=== PATIENT | male | born 1985 | race Caucasian/White ===

== ENCOUNTER 2022-11-23 13:38 | Outpatient (REF) | payer SELFPAY | END 2022-11-23 13:39 | disposition home or self-care (01) | LOC: LBN 13:38 | PROVIDERS: Visit Provider Physician Assistant Medical | DX: J02.9 Acute pharyngitis, unspecified (principal) | CPT/HCPCS: 87081 ==

== ENCOUNTER 2023-09-12 20:47 | Observation (INO) | payer OTHER, SELFPAY ==
[2023-09-12 20:53] VITALS: BP 118/72; PULSE 96; RESP 16; TEMP 37.5; O2SAT 96
[2023-09-12 22:06] LABS: Bilirubin Negative (Negative); Blood Negative (Negative); Clarity Clear (Clear); Glucose Negative (Negative); Ketones Negative (Negative); Leukocyte Esterase Negative (Negative); Nitrite Negative (Negative)
[2023-09-12 22:15] LABS: Bacteria Negative HPF (Negative); C & S Indicated? No; Crystals Negative HPF (Negative); Epithelial Cells Few HPF (Negative); Mucus Heavy (Negative); RBC 0-2 HPF (0-2)
--- NOTE | 2023-09-12 22:15 | DI.CT_ITS ---
Exam(s) CT ABDOMEN PELVIS W EXAM: CT ABDOMEN PELVIS W CLINICAL HISTORY: Recent Dx of Diverticulitis, Fever, increased pain. TECHNIQUE: Imaging Protocol: Axial computed tomography images with coronal and sagittal reformatted images were created and reviewed CONTRAST MATERIAL: Intravenous: Omnipaque 350 Contrast volume:100 ml Oral: / no COMPARISON: CT ABD PELVIS WITH CONTRAST from 09/15/2015 FINDINGS: ABDOMEN and PELVIS: Lung Bases: Normal where visualized. Liver: Normal density. No measurable mass. Gallbladder and biliary tract: No radiodense calculus or dilation. Pancreas: Normal density. No abnormal calcifications or inflammatory process. No evidence of mass. Spleen: Normal. Kidneys: Normal size, contour and axis. No radiodense stones. No obstructive uropathy. No suspicious masses seen. Adrenal glands: No masses seen. Vasculature: Abdominal aorta non-dilated. Soft tissues: Fatty containing right inguinal hernia. Metallic foreign body anterior right inguinal region. Bladder: Nearly empty. Not well evaluated. Bowel: Mild sigmoid and descending colon diverticulosis. There is wall thickening of the sigmoid a l ow in the pelvis with surrounding inflammation. Minimal amount of fluid but no discrete abscess. Ad jacent loops of small bowel also appear thick walled and mildly dilated. No findings to suggest obst ruction. Appendix normal. Bones: Unremarkable for age. Reproductive organs: Within normal limits. Lymph nodes: Enteric lymph nodes mildly enlarged, likely reactive. IMPRESSION:: Inflammation centered around the sigmoid colon which could indicate diverticulitis vers us colitis. Adjacent loops of small bowel appear effected by the inflammation. No evidence of perfo ration or abscess. RADIATION DOSE DELIVERED: Total DLP DATA REPOSITORY: All CT scans at this facility are submitted to the National Radiology Data Registry (NRDR) Dose Index Registry (DIR) with the [employer] (A[employer]). RADIATION OPTIMIZATION: All CT scans at this facility use at least one of these dose optimization te chniques: automated exposure control; mA and/or kV adjustment per patient size (includes targeted exa ms where dose is matched to clinical indication); or iterative reconstruction.
--- NOTE | 2023-09-12 22:20 | ED.GENADUL_ITS ---
Discharge Plan Disposition Patient Disposition: Admit to [facility] Condition: Stable Discharge Details Clinical Impression: Diverticulitis Primary Care Provider: [facility] ED Provider: Rossy Guallpa Home Meds and New Rx's Prescriptions: No Action acetaminophen [Tylenol Extra Strength] 500 MG tablet 500 mg PO TID omeprazole magnesium [Prilosec OTC] 20 MG tablet,delayed release (DR/EC) 1 tab PO DAILY amoxicillin-pot clavulanate 1 TAB tablet 1 ea PO BID Qty: 14 0RF Medical Decision Making 37-year-old male with history of diverticulitis presents to the ER with chief complaint of worsening abdominal pain. Intermittent fevers and dysuria. He was seen yesterday at the [facility] in [place] was diagnosed with diverticulitis. He was given amoxicillin 3 times daily which he is taken approximately 5 doses of. He has taken Tylenol for pain. Last dose was 7:40 PM prior to arrival. He denies any nausea vomiting diarrhea he does endorse constipation no bowel movement today. He does note small amount of lower abdominal bloating. He reports mucus in his stool he denies any known blood in his stool no vomiting. I did discuss work-up options including pain management and control versus repeat CT to rule out perforation or obstruction at this time patient would like to go ahead and have additional work-up done. CT ordered CBC CMP lactate. Urinalysis shows no evidence of UTI 1.0 urobilinogen 30 protein no leukocytes no nitrites. Liter of LR ordered and 0.5 mg of hydromorphone. 2359: Spoke with Dr. Beth regarding patient case and details. He is unable to view the CT images at this time. I did relay the results with him. He agrees to accept patient for admission after further discussion with patient patient is willing to be admitted for overnight observation due to worsening pain and continued fever and recurrent diverticulitis, and IV antibiotics Dr. Beth recommends Zosyn and he will reevaluate in the a.m. Zosyn 3.375 g IV piggyback ordered. We will place ED admission orders. Medical Records Medical records reviewed: Yes I reviewed the patient's medical records. Imaging Data Radiologic Study: Imaging: CT Scan Radiologist's impression: FINDINGS: Lungs: The lungs are otherwise normal. Pleural spaces: There is no evidence of pneumothorax. There are no pleural effusions present. Heart: The cardiac structures are normal. Liver: There are no focal liver lesions present. There is no evidence of intrahepatic or extrahepatic biliary ductal dilation. Gallbladder and bile ducts: The gallbladder is normal. There is no cholelitiasis, wall thickening or pericholecystic fluid to suggest cholecystitis. Pancreas: The pancreas is normal. Spleen: The spleen is slightly enlarged but otherwise normal. normal. Adrenal glands: The adrenal glands are normal without evidence of mass or enlargement. Kidneys and ureters: The kidneys are normal no evidence of nephrolithiasis or hydronephrosis. The ureters are normal caliber and follow a normal caliber and course. Stomach and bowel: Mild diverticulosis is present in the sigmoid and descending colon. There are diffuse fluid filled loops of small bowel and colon with scattered air fluid levels. The bowel loops are mildly distended. There is mild associated bowel wall thickening. No evidence of obstruction. Findings most consistent with diffuse enterocolitis. There is a segment of wall thickening at the junction of the sigmoid and descending colon, with associated inflammatory changes within the mesentery, consistent in appearance with acute diverticulitis. There is small phlegmon within the lower pelvis best it seen on image 75 series 4 no definitive well developed abscess identified. As an underlying colonic malignancy cannot be entirely excluded, a follow-up examination after a course of treatment is recommended if clinically warranted. There are fluid-filled loops of small bowel with air-fluid levels. No significant bowel wall thickening or inflammatory changes. No evidence of obstruction. Consider early enteritis. Appendix: A normal appendix is identified. There is no evidence of distention or periappen diceal inflammation to suggest appendicitis. Intraperitoneal space: No free air. No significant fluid collection. Vasculature: The aorta is unremarkable without evidence of significant atherosclerosis or aneurysmal disease. The peripheral arterial vascular system visualized is unremarkable. The portal venous system visualized is unremarkable. The peripheral venous vascular system visualized is unremarkable. Lymph nodes: There are enlarged nonspecific lymph nodes in the mesenteric fat. This nonspecific mesenteric adenitis can be secondary to a variety of bacterial, viral, or other inflammatory processes. Urinary bladder: Unremarkable as visualized. Reproductive: The prostate gland demonstrates calcification and mild to moderate nonspecific enlargement. The seminal vesicles are normal. Bones/joints: The skeletal structures and soft tissues show no evidence of fracture or other acute processes. Soft tissues: There is a nonobstructing right inguinal hernia containing fat and possibly a small amount of mesentery. The soft tissues of the extrathoracic region are unremarkable. Metallic foreign body present the anterior right inguinal region. IMPRESSION: 1. There are diffuse fluid filled loops of small bowel and colon with scattered air fluid levels. The bowel loops are mildly distended. There is mild associated bowel wall thickening. No evidence of obstruction. Findings most consistent with diffuse enterocolitis. . 2. There is a segment of wall thickening at the junction of the sigmoid and descending colon, with associated inflammatory changes within the mesentery, consistent in appearance with acute diverticulitis. There is small phlegmon within the lower pelvis best it seen on image 75 series 4 no definitive well developed abscess identified. As an underlying colonic malignancy cannot be entirely excluded, a follow-up examination after a course of treatment is recommended if clinically warranted. Critical 3. There are fluid-filled loops of small bowel with air-fluid levels. No significant bowel wall thickening or inflammatory changes. No evidence of obstruction. Consider early enteritis. 4. There are enlarged nonspecific lymph nodes in the mesenteric fat. This nonspecific mesenteric adenitis can be secondary to a variety of bacterial, viral, or other inflammatory processes. Thank you for allowing us to participate in the care of your patient. Dictated and Authenticated by: Neymar Pineda MD Lab Data Lab results reviewed: Yes I reviewed the patient's lab results. Labs: Laboratory Tests Range/Units 09/12/23 09/12/23 22:03 22:30 WBC (4.4-10.8) 10^3/uL 11.91 H RBC (4.36-5.78) 10^6/uL 4.88 Hgb (13.5-17.5) g/dL 13.3 L Hct (40.0-50.0) % 39.3 L MCV (80-95) fL 81 MCH (27.0-33.0) pg 27.3 MCHC (32.0-36.0) % 33.8 RDW (11.8-14.1) % 11.9 Plt Count (130-400) 10^3/uL 215 MPV (8.0-11.0) fL 10.6 Immature Gran % 0.4 Neutrophils % 76.6 Lymphocytes % 14.0 Monocytes % 8.0 Eosinophils % 0.5 Basophils % 0.5 Nucleated RBC % (0.0-0.3) % 0.0 Absolute Neutrophils (1.2-6.7) 10^3/uL 9.12 H Absolute Lymphocytes (1.2-3.4) 10^3/uL 1.67 Absolute Monocytes (0.1-0.8) 10^3/uL 0.95 H Absolute Eosinophils (0.0-0.7) 10^3/uL 0.06 Absolute Basophils (0.0-0.2) 10^3/uL 0.06 VBG Lactate (0.6-1.4) mmol/L 0.7 Sodium (136-145) mmol/L 137 Potassium (3.5-5.1) mmol/L 3.6 Chloride (98-107) mmol/L 102 Carbon Dioxide (21.0-32.0) mmol/L 28.8 Anion Gap (3-11) mmol/L 6.2 BUN (7-18) mg/dL 16 Creatinine (0.70-1.30) mg/dL 1.1 Est GFR (CKD-EPI 2020) (mL/min/1.73m2) 88.12 Glucose (74-106) mg/dL 112 H Calcium (8.5-10.1) mg/dL 9.0 Magnesium (1.8-2.4) mg/dL 1.9 Total Bilirubin (0.2-1.0) mg/dL 0.6 AST (15-37) U/L 13 L ALT (16-63) U/L 31 Alkaline Phosphatase (46-116) U/L 50 Total Protein (6.4-8.2) g/dL 7.2 Albumin (3.4-5.0) g/dL 3.6 Lipase (16-77) U/L 23 Urine Color (Yellow) Yellow Urine Clarity (Clear) Clear Urine pH (5-8) 7.0 Ur Specific [place] (1.005-1.025) 1.020 Urine Protein (Negative) mg/dL 30 H Urine Ketones (Negative) mg/dL Negative Urine Blood (Negative) Negative Urine Nitrite (Negative) Negative Urine Bilirubin (Negative) Negative Urine Urobilinogen (Up to 0.2) mg/dL 1.0 H Ur Leukocyte Esterase (Negative) Negative Urine RBC (0-2) HPF 0-2 Urine WBC (0-5) HPF 3-5 Ur Epithelial Cells (Negative) HPF Few Urine Crystals (Negative) HPF Negative Urine Bacteria (Negative) HPF Negative Urine Mucus (Negative) Heavy Ur Culture Indicated? No Urine Glucose (Negative) mg/dL Negative HPI General Mode of arrival: ambulatory . Date/Time Provider Initiated Documentation: 09/12/23 21:49 . Limitations to Documentation: no limitations . Information obtained by: patient, family, RN notes reviewed and old records reviewed . HPI Narrative: 37-year-old male with history of diverticulitis presents to the ER with chief complaint of worsening abdominal pain. Intermittent fevers and dysuria. He was seen yesterday at the [facility] in [place] was diagnosed with diverticulitis. He was given amoxicillin 3 times daily which he is taken approximately 5 doses of. He has taken Tylenol for pain. Last dose was 7:40 PM prior to arrival. He denies any nausea vomiting diarrhea he does endorse constipation no bowel movement today. He does note small amount of lower abdominal bloating. He reports mucus in his stool he denies any known blood in his stool no vomiting. Related Data Home Medications Medication Instructions Recorded Confirmed acetaminophen 500 mg tablet 500 mg PO TID 10/01/15 09/12/23 (Tylenol Extra Strength) amoxicillin 875 mg-potassium 1 ea PO BID #14 tabs 03/17/18 09/12/23 clavulanate 125 mg tablet omeprazole magnesium 20 mg 1 tab PO DAILY 03/17/18 09/12/23 tablet,delayed release (Prilosec OTC) Previous Rx's Medication Instructions Recorded amoxicillin 875 mg-potassium 1 ea PO BID #14 tabs 03/17/18 clavulanate 125 mg tablet Allergies Allergy/AdvReac Type Severity Reaction Status Date / Time No Known Allergies Allergy Unverified 09/12/23 22:00 General Stated Complaint: Abd Prob ARTHUR: 3 PFSH All Active Problems (Updated 09/13/23 @ 00:02 by Rossy Guallpa NP) Diverticulitis (Acute) Social History Smoking/Tobacco Use Status: Former Tobacco Use Smoking risk assessment performed?: Yes Alcohol Intake: never Drug use: Daily Substance use type: marijuana Do you feel safe at home: Yes Do you feel safe in your relationship?: Yes Exam Narrative Exam Narrative: Constitutional: Alert and oriented x3. Appears stated age. Normal body habitus. Head: Normocephalic, no trauma. Eyes: Pupils PERRL, Red reflex noted, EOM's intact. Eyelids symmetrical without lesions, discharge, or swelling. Chest: RRR, Normal S1, S2, distal pulses intact. Resp: Lungs clear to auscultation bilaterally, no wheezes, rales, or rhonchi. Abdomen: Soft, Mild bloating noted to lower abdomen, hypoactive bowel sounds. Musculoskeletal: Normal gait, 5/5 strength to all four extremities. Skin: No suspicious rashes or lesions. Capillary refill less than 2 sec. Neurologic: Cranial nerves II-XII intact. Alert and oriented x 3. Motor: No deficits noted. Sensory: Intact bilaterally all 4 extremities. Hematologic/Lymphatic: No ecchymosis, no lymphadenopathy. Course Vital Signs Vital signs: Vital Signs Temperature 37.5 C 09/12/23 20:53 Pulse 96 H 09/12/23 20:53 Respiratory Rate 16 09/12/23 20:53 Blood Pressure 118/72 09/12/23 20:53 Pulse Oximetry 96 09/12/23 20:53 Temperature 37.5 C 09/12/23 20:53 Temperature Source Temporal Artery Scan 09/12/23 20:53 Pulse 96 H 09/12/23 20:53 Respiratory Rate 16 09/12/23 20:53 Respiratory Effort Normal, Non-Labored 09/12/23 21:59 Blood Pressure 118/72 09/12/23 20:53 Blood Pressure Position Sitting 09/12/23 20:53 Pulse Oximetry 96 09/12/23 20:53 Oxygen Delivery Method Room Air 09/12/23 20:53 Oxygen Flow Rate 0 09/12/23 20:53 Pain Level 6 09/12/23 21:56 Lab/Test Results Lab/Test Results: Laboratory Tests Range/Units 09/12/23 22:03 Urine Color (Yellow) Yellow Urine Clarity (Clear) Clear Urine pH (5-8) 7.0 Ur Specific [place] (1.005-1.025) 1.020 Urine Protein (Negative) mg/dL 30 H Urine Ketones (Negative) mg/dL Negative Urine Blood (Negative) Negative Urine Nitrite (Negative) Negative Urine Bilirubin (Negative) Negative Urine Urobilinogen (Up to 0.2) mg/dL 1.0 H Ur Leukocyte Esterase (Negative) Negative Urine RBC (0-2) HPF 0-2 Urine WBC (0-5) HPF 3-5 Ur Epithelial Cells (Negative) HPF Few Urine Crystals (Negative) HPF Negative Urine Bacteria (Negative) HPF Negative Urine Mucus (Negative) Heavy Ur Culture Indicated? No Urine Glucose (Negative) mg/dL Negative
[2023-09-12 22:33] LABS: Lactate 0.7 mmol/L (0.6-1.4)
[2023-09-12] MEDS: Lactated Ringers 1,000 ML 1000 ML IV (22:33)
[2023-09-12] MEDS: HYDROmorphone 2 MG/ML SYR 0.5 MG IVP (22:33)
[2023-09-12 22:34] LABS: Abs Immature Grans 0.05 10^3/uL (0.0-0.06); Absolute Basophil Count 0.06 10^3/uL (0.0-0.2); Absolute Eosinophil Count 0.06 10^3/uL (0.0-0.7); Absolute Lymphocyte Count 1.67 10^3/uL (1.2-3.4); Absolute Monocyte Count 0.95 10^3/uL (0.1-0.8); Absolute Neutrophil Count 9.12 10^3/uL (1.2-6.7); Basophils % 0.5; Eosinophils % 0.5; HCT 39.3 % (40.0-50.0); HGB 13.3 g/dL (13.5-17.5); Immature Grans % 0.4; MCH 27.3 pg (27.0-33.0); MCHC 33.8 % (32.0-36.0); MCV 81 fL (80-95); MPV 10.6 fL (8.0-11.0); Neutrophils % 76.6; Platelet Count 215 10^3/uL (130-400); RBC 4.88 10^6/uL (4.36-5.78); RDW 11.9 % (11.8-14.1); RDW-SD 34.5 fL; WBC 11.91 10^3/uL (4.4-10.8)
[2023-09-12] MEDS: Normal Saline - Diluent 50 ML VIAL IV (22:48)
[2023-09-12 22:49] LABS: ALT 31 U/L (16-63); AST 13 U/L (15-37); Albumin 3.6 g/dL (3.4-5.0); Alkaline Phosphatase 50 U/L (46-116); Anion Gap 6.2 mmol/L (3-11); BUN 16 mg/dL (7-18); Bilirubin, Total 0.6 mg/dL (0.2-1.0); CO2 28.8 mmol/L (21.0-32.0); CREATININE 1.1 mg/dL (0.70-1.30); Chloride 102 mmol/L (98-107); Estimated GFR 88.12 (mL/min/1.73m2); Glucose 112 mg/dL (74-106); Lipase 23 U/L (16-77); Magnesium 1.9 mg/dL (1.8-2.4); Potassium 3.6 mmol/L (3.5-5.1); Sodium 137 mmol/L (136-145); Total Protein 7.2 g/dL (6.4-8.2)
[2023-09-12] MEDS: Normal Saline Flush 10 ML SYR IVP (22:49)
[2023-09-12] MEDS: Omnipaque 350 MG/ML 100 ML BTL IJ (22:49)
--- NOTE | 2023-09-12 23:11 | DI.VRAD_ITS ---
PROCEDURE INFORMATION: Exam: CT Abdomen And Pelvis With Contrast Exam date and time: 09/12/2023 10:39 PM Age: 37 years old Clinical indication: Other: Recent dx of diverticulitis, fever, increased pain TECHNIQUE: Imaging protocol: Computed tomography of the abdomen and pelvis with contrast. Contrast material: 350; Contrast volume: 100 ml; Contrast route: INTRAVENOUS (IV); COMPARISON: CR CHEST 2 VIEWS PA,LAT 03/17/2018 3:51 PM FINDINGS: Lungs: The lungs are otherwise normal. Pleural spaces: There is no evidence of pneumothorax. There are no pleural effusions present. Heart: The cardiac structures are normal. Liver: There are no focal liver lesions present. There is no evidence of intrahepatic or extrahepatic biliary ductal dilation. Gallbladder and bile ducts: The gallbladder is normal. There is no cholelitiasis, wall thickening or pericholecystic fluid to suggest cholecystitis. Pancreas: The pancreas is normal. Spleen: The spleen is slightly enlarged but otherwise normal. normal. Adrenal glands: The adrenal glands are normal without evidence of mass or enlargement. Kidneys and ureters: The kidneys are normal no evidence of nephrolithiasis or hydronephrosis. The ureters are normal caliber and follow a normal caliber and course. Stomach and bowel: Mild diverticulosis is present in the sigmoid and descending colon. There are diffuse fluid filled loops of small bowel and colon with scattered air fluid levels. The bowel loops are mildly distended. There is mild associated bowel wall thickening. No evidence of obstruction. Findings most consistent with diffuse enterocolitis. There is a segment of wall thickening at the junction of the sigmoid and descending colon, with associated inflammatory changes within the mesentery, consistent in appearance with acute diverticulitis. There is small phlegmon within the lower pelvis best it seen on image 75 series 4 no definitive well developed abscess identified. As an underlying colonic malignancy cannot be entirely excluded, a follow-up examination after a course of treatment is recommended if clinically warranted. There are fluid-filled loops of small bowel with air-fluid levels. No significant bowel wall thickening or inflammatory changes. No evidence of obstruction. Consider early enteritis. Appendix: A normal appendix is identified. There is no evidence of distention or periappendiceal inflammation to suggest appendicitis. Intraperitoneal space: No free air. No significant fluid collection. Vasculature: The aorta is unremarkable without evidence of significant atherosclerosis or aneurysmal disease. The peripheral arterial vascular system visualized is unremarkable. The portal venous system visualized is unremarkable. The peripheral venous vascular system visualized is unremarkable. Lymph nodes: There are enlarged nonspecific lymph nodes in the mesenteric fat. This nonspecific mesenteric adenitis can be secondary to a variety of bacterial, viral, or other inflammatory processes. Urinary bladder: Unremarkable as visualized. Reproductive: The prostate gland demonstrates calcification and mild to moderate nonspecific enlargement. The seminal vesicles are normal. Bones/joints: The skeletal structures and soft tissues show no evidence of fracture or other acute processes. Soft tissues: There is a nonobstructing right inguinal hernia containing fat and possibly a small amount of mesentery. The soft tissues of the extrathoracic region are unremarkable. Metallic foreign body present the anterior right inguinal region. IMPRESSION: 1. There are diffuse fluid filled loops of small bowel and colon with scattered air fluid levels. The bowel loops are mildly distended. There is mild associated bowel wall thickening. No evidence of obstruction. Findings most consistent with diffuse enterocolitis. . 2. There is a segment of wall thickening at the junction of the sigmoid and descending colon, with associated inflammatory changes within the mesentery, consistent in appearance with acute diverticulitis. There is small phlegmon within the lower pelvis best it seen on image 75 series 4 no definitive well developed abscess identified. As an underlying colonic malignancy cannot be entirely excluded, a follow-up examination after a course of treatment is recommended if clinically warranted. Critical 3. There are fluid-filled loops of small bowel with air-fluid levels. No significant bowel wall thickening or inflammatory changes. No evidence of obstruction. Consider early enteritis. 4. There are enlarged nonspecific lymph nodes in the mesenteric fat. This nonspecific mesenteric adenitis can be secondary to a variety of bacterial, viral, or other inflammatory processes. Dictated and Authenticated by: Neymar Pineda MD. Ordering:SUJIT Blair MD
[2023-09-13] VITALS (9 sets, daily range): BP systolic 111–124; BP diastolic 70–77; PULSE 65–76; RESP 18–19; TEMP 36.1–36.9; O2SAT 96–99
[2023-09-13] MEDS: PIPERACILLIN/TAZO 3.375 GM in Normal Saline 50 ML IVPB ×4 (00:05→20:21)
[2023-09-13 00:42] LABS: Source Nasal/Nares
[2023-09-13 01:07] LABS: COVID-19 PCR Negative (Negative)
[2023-09-13] MEDS: fentaNYL 100 MCG/2 ML VIAL 50 MCG IVP (01:51)
[2023-09-13] MEDS: Normal Saline 1,000 ML 150 ML IV (01:51)
--- NOTE | 2023-09-13 07:09 | HPE_ITS ---
Date of service: 09/13/23 Time of Service: 07:09 Assessment and Plan Assessment and plan (1) Diverticulitis: Status: Acute Assessment and plan: Certainly, there is inflammation around the sigmoid colon, and he does have some tenderness in the area. In that regards, diverticulitis seems like the most consistent diagnosis. However, the CAT scan does raise the possibility of diffuse enterocolitis as well, and based on the frequency of his flareups, I do wonder if other inflammatory bowel disease is within the differential diagnosis here. Based on his age, and the CAT scan, I suppose Crohn's disease would be a fair consideration. For now, we will continue with intravenous antibiotics. If his white blood cell count improves, I will continue the Zosyn for 24 hours, then transition back over to an enteral regimen. If his symptoms do not improve, then it would be worth trying combination of a nata quinolone as well as metronidazole. History of Present Illness History of Present Illness Chief Complaint: Lower abdominal pain Narrative: Yousif is 37 years old, and he comes to the hospital after the acute onset of abdominal pain across the lower midline portion of his abdomen. It started on Sunday morning. He recognized the symptoms as very similar to past episodes of diverticulitis. He was seen at the [facility] and prescribed Augmentin. He started it immediately, and so far has taken 5 doses. Unfortunately, his abdominal pain became more intense and sharp. He was found have a white blood cell count around 12, and underwent a CAT scan of the abdomen and pelvis that demonstrated acute sigmoid diverticulitis. He was started on Zosyn and admitted to the hospital. This morning, he says he is felt a little bit better compared to when he first came in, although he has been medicated for pain. He denies nausea or vomiting. He denied any particular change in the character of his bowel movements. He was admitted to the hospital 1 time in the past for diverticulitis, but discharged the same day. Otherwise all of his attacks have been managed as an outpatient. He does note increasing frequency of diverticulitis flareups this year, with no other changes in his lifestyle, medication, or diet. He has never undergone colonoscopy before. Review of Systems Constitutional Constitutional: Denies body ache(s), Denies chills, Denies fever(s), Denies poor appetite and Denies weight loss Eyes Eyes: Reports system reviewed and no additional complaints, except as documented ENT Ears, Nose, Mouth, and Throat: Reports system reviewed and no additional complaints, except as documented Cardiovascular Cardiovascular: Denies chest pain and Denies dyspnea Respiratory Respiratory: Denies chest congestion, Denies cough and Denies dyspnea Gastrointestinal Gastrointestinal: Reports abdominal pain, Denies belching, Denies bloating, Denies change in stool character, Reports cramping, Denies nausea and Denies vomiting Genitourinary Genitourinary: Reports system reviewed and no additional complaints, except as documented Musculoskeletal Musculoskeletal: Reports system reviewed and no additional complaints, except as documented Neurologic Neurologic: Reports system reviewed and no additional complaints, except as documented Psychiatric Psychiatric: Reports system reviewed and no additional complaints, except as documented Hematologic/Lymphatic Hematologic/Lymphatic: Denies easy bleeding and Denies easy bruising PFSH All Active Problems Diverticulitis (Acute) Social History Smoking/Tobacco Use Status: Former Tobacco Use Smoking risk assessment performed?: Yes Alcohol Intake: never Drug use: Daily Substance use type: marijuana Housing: apartment Do you feel safe at home: Yes Do you feel safe in your relationship?: Yes Meds Allergies and Home Medications Allergies Allergy/AdvReac Type Severity Reaction Status Date / Time No Known Allergies Allergy Unverified 09/12/23 22:00 Home Medications Medication Instructions Recorded Confirmed Type acetaminophen 500 mg tablet 500 mg PO TID 10/01/15 09/12/23 History (Tylenol Extra Strength) amoxicillin 875 mg-potassium 1 ea PO BID #14 tabs 03/17/18 09/12/23 Rx clavulanate 125 mg tablet omeprazole magnesium 20 mg 1 tab PO DAILY 03/17/18 09/12/23 History tablet,delayed release (Prilosec OTC) Exam Const General: cooperative, healthy appearing and no acute distress Orientation: alert, awake and oriented x3 HENMT Head: normal to inspection GI Inspection: normal to inspection and non-distended Palpation: soft, guarding, no hernias and tender (Suprapubic) Percussion: normal to percussion Auscultation: normal bowel sounds Results Imaging Abdomen CT scan report/results: report reviewed and image reviewed CT scan - pelvis: report reviewed and image reviewed Labs 09/12/23 22:30 09/12/23 22:30 Labs: Laboratory Results - last 24 hr 09/12/23 09/12/23 09/12/23 22:03 22:30 23:37 WBC 11.91 H RBC 4.88 Hgb 13.3 L Hct 39.3 L MCV 81 MCH 27.3 MCHC 33.8 RDW 11.9 Plt Count 215 MPV 10.6 Immature Gran % 0.4 Neutrophils % 76.6 Lymphocytes % 14.0 Monocytes % 8.0 Eosinophils % 0.5 Basophils % 0.5 Nucleated RBC % 0.0 Absolute Neutrophils 9.12 H Absolute Lymphocytes 1.67 Absolute Monocytes 0.95 H Absolute Eosinophils 0.06 Absolute Basophils 0.06 VBG Lactate 0.7 Cancelled Sodium 137 Potassium 3.6 Chloride 102 Carbon Dioxide 28.8 Anion Gap 6.2 BUN 16 Creatinine 1.1 Est GFR (CKD-EPI 2020) 88.12 Glucose 112 H Calcium 9.0 Magnesium 1.9 Total Bilirubin 0.6 AST 13 L ALT 31 Alkaline Phosphatase 50 Total Protein 7.2 Albumin 3.6 Lipase 23 Urine Color Yellow Urine Clarity Clear Urine pH 7.0 Ur Specific [place] 1.020 Urine Protein 30 H Urine Ketones Negative Urine Blood Negative Urine Nitrite Negative Urine Bilirubin Negative Urine Urobilinogen 1.0 H Ur Leukocyte Esterase Negative Urine RBC 0-2 Urine WBC 3-5 Ur Epithelial Cells Few Urine Crystals Negative Urine Bacteria Negative Urine Mucus Heavy Ur Culture Indicated? No Urine Glucose Negative COVID-19 Source SARS-CoV-2 (PCR) 09/13/23 00:26 WBC RBC Hgb Hct MCV MCH MCHC RDW Plt Count MPV Immature Gran % Neutrophils % Lymphocytes % Monocytes % Eosinophils % Basophils % Nucleated RBC % Absolute Neutrophils Absolute Lymphocytes Absolute Monocytes Absolute Eosinophils Absolute Basophils VBG Lactate Sodium Potassium Chloride Carbon Dioxide Anion Gap BUN Creatinine Est GFR (CKD-EPI 2020) Glucose Calcium Magnesium Total Bilirubin AST ALT Alkaline Phosphatase Total Protein Albumin Lipase Urine Color Urine Clarity Urine pH Ur Specific [place] Urine Protein Urine Ketones Urine Blood Urine Nitrite Urine Bilirubin Urine Urobilinogen Ur Leukocyte Esterase Urine RBC Urine WBC Ur Epithelial Cells Urine Crystals Urine Bacteria Urine Mucus Ur Culture Indicated? Urine Glucose COVID-19 Source Nasal/Nares SARS-CoV-2 (PCR) Negative Last Vital Signs Temp 97.2 F L 09/13/23 01:32 Pulse 69 09/13/23 01:32 Resp 18 09/13/23 01:32 BP 113/71 09/13/23 01:32 Pulse Ox 97 09/13/23 01:32 Time Spent Time spent with Patient: 40-54 minutes Time was spent: preparing to see the patient(eg.review tests), ordering medications,tests, procedures, indepentently interpreting results and counseling the patient
[2023-09-13] MEDS: Omeprazole 20 MG CAPCR PO (07:44)
[2023-09-13] MEDS: Enoxaparin 40 MG/0.4 ML SYR SC (07:44)
[2023-09-13] MEDS: Ketorolac 15 MG/ML VIAL IVP (07:45)
[2023-09-13 07:54] LABS: Abs Immature Grans 0.04 10^3/uL (0.0-0.06); Absolute Basophil Count 0.04 10^3/uL (0.0-0.2); Absolute Eosinophil Count 0.07 10^3/uL (0.0-0.7); Absolute Lymphocyte Count 1.25 10^3/uL (1.2-3.4); Absolute Monocyte Count 0.91 10^3/uL (0.1-0.8); Absolute Neutrophil Count 8.28 10^3/uL (1.2-6.7); Basophils % 0.4; Eosinophils % 0.7; HCT 37.1 % (40.0-50.0); HGB 12.6 g/dL (13.5-17.5); Immature Grans % 0.4; Lymphocytes % 11.8; MCH 27.6 pg (27.0-33.0); MCV 81 fL (80-95); MPV 11.2 fL (8.0-11.0); Monocytes % 8.6; Neutrophils % 78.1; Platelet Count 195 10^3/uL (130-400); RBC 4.57 10^6/uL (4.36-5.78); RDW-SD 35.3 fL; WBC 10.59 10^3/uL (4.4-10.8)
[2023-09-13 08:00] LABS: ALT 29 U/L (16-63); AST 12 U/L (15-37); Albumin 3.2 g/dL (3.4-5.0); Alkaline Phosphatase 46 U/L (46-116); Anion Gap 7.7 mmol/L (3-11); BUN 13 mg/dL (7-18); Bilirubin, Total 0.7 mg/dL (0.2-1.0); CO2 25.3 mmol/L (21.0-32.0); CREATININE 0.9 mg/dL (0.70-1.30); Calcium 8.7 mg/dL (8.5-10.1); Chloride 105 mmol/L (98-107); Estimated GFR 112.11 (mL/min/1.73m2); Glucose 100 mg/dL (74-106); Potassium 3.7 mmol/L (3.5-5.1); Sodium 138 mmol/L (136-145); Total Protein 6.5 g/dL (6.4-8.2)
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
--- NOTE | 2023-09-13 20:04 | W.PM.DS.N ---
Date of service: 09/14/23 Time of Service: 07:23 DS: Diagnosis Discharge Diagnosis (1) Diverticulitis: Status: Acute Discharge Plan Disposition Patient Disposition: Home Condition: Stable Condition: Improving Discharge Details Reason For Visit: Diverticulitis, Abdominal Pain Admit Date/Time: 09/13/23 10:53 Admit Provider: Claudio Beth Attending Provider: Claudio Beth Primary Care Provider: [place] Hospital Course Hospital Course: Yousif is 37 years old and he was admitted with abdominal pain from diverticulitis after failed outpatient antibiotics. He had a leukocytosis and a CT scan that demonstrated enterocolitis versus diverticulitis. he was placed on a simple clear liquid diet and IV antibiotics were started. His pain improved and his WBC normalized. Home Meds and New Rx's Prescriptions: No Action acetaminophen [Tylenol Extra Strength] 500 MG tablet 500 mg PO TID omeprazole magnesium [Prilosec OTC] 20 MG tablet,delayed release (DR/EC) 1 tab PO DAILY amoxicillin-pot clavulanate 1 TAB tablet 1 ea PO BID Qty: 14 0RF Discharge Instructions Instructions: Diverticulitis (DC), Diverticulitis Diet (DC) [facility] - (Follow-up already scheduled for October 05) Activity:: Activity as Tolerated Equipment/Supplies:: No Equipment Needed Diet:: Other DS: Summary Time Spent with Patient providing and/or coordinating discharge services: Greater than 30 minutes Status at Discharge Functional status at discharge: independent ambulation Overall status at discharge: patient is progressing back to baseline Mental Status: mental status grossly normal Speech and Movement: speech and movement normal Mood: congruent mood Affect: normal affect Exam GI Other: Abdomen is soft, with less suprapubic tenderness. He is not distended. He has normal bowel sounds. Psych Mental Status: mental status grossly normal Speech and Movement: speech and movement normal Mood: congruent mood Affect: normal affect DS: Data Vitals/I&O Vitals and I&O: Vital Signs Temperature 98.4 F 09/13/23 15:13 Temperature Source Tympanic 09/13/23 15:13 Pulse 69 09/13/23 15:13 Pulse Rhythm Regular 09/13/23 15:15 Respiratory Rate 19 09/13/23 15:13 Respiratory Effort Normal, Non-Labored 09/13/23 15:15 Respiratory Depth Normal 09/13/23 15:15 Respiratory Pattern Normal 09/13/23 15:15 Blood Pressure 124/77 09/13/23 15:13 Blood Pressure Position Sitting 09/13/23 01:32 Pulse Oximetry 98 09/13/23 15:13 Oxygen Delivery Method Room Air 09/13/23 15:13 Oxygen Flow Rate 0 09/13/23 15:13 Pain Level 0 09/13/23 15:13 Intake & Output 09/12/23 09/13/23 09/13/23 23:59 11:59 23:59 Intake Total 1010 / 1010 1050 / 1100 50 / 1100 Output Total 250 / 250 Balance 1010 / 1010 800 / 850 50 / 850 Weight 205 lb 200 lb Intake: IV 1010 / 1010 1050 / 1100 50 / 1100 Output: Urine 250 / 250 Other: Urine Color Yellow Urine Appearance Clear Clear Stool Size Moderate Stool Characteristics Soft Brown Voiding Methods Urinal Data Completed and Pending Labs on day of discharge: Labs from last 24 hours 09/13/23 09/13/23 09/12/23 07:05 00:26 23:37 WBC 10.59 RBC 4.57 Hgb 12.6 L Hct 37.1 L MCV 81 MCH 27.6 MCHC 34.0 RDW 12.0 Plt Count 195 MPV 11.2 H Immature Gran % 0.4 Neutrophils % 78.1 Lymphocytes % 11.8 Monocytes % 8.6 Eosinophils % 0.7 Basophils % 0.4 Nucleated RBC % 0.0 Absolute Neutrophils 8.28 H Absolute Lymphocytes 1.25 Absolute Monocytes 0.91 H Absolute Eosinophils 0.07 Absolute Basophils 0.04 VBG Lactate Cancelled Sodium 138 Potassium 3.7 Chloride 105 Carbon Dioxide 25.3 Anion Gap 7.7 BUN 13 Creatinine 0.9 Est GFR (CKD-EPI 2020) 112.11 Glucose 100 Calcium 8.7 Magnesium Total Bilirubin 0.7 AST 12 L ALT 29 Alkaline Phosphatase 46 Total Protein 6.5 Albumin 3.2 L Lipase Urine Color Urine Clarity Urine pH Ur Specific [place] Urine Protein Urine Ketones Urine Blood Urine Nitrite Urine Bilirubin Urine Urobilinogen Ur Leukocyte Esterase Urine RBC Urine WBC Ur Epithelial Cells Urine Crystals Urine Bacteria Urine Mucus Ur Culture Indicated? Urine Glucose COVID-19 Source Nasal/Nares SARS-CoV-2 (PCR) Negative 09/12/23 09/12/23 22:30 22:03 WBC 11.91 H RBC 4.88 Hgb 13.3 L Hct 39.3 L MCV 81 MCH 27.3 MCHC 33.8 RDW 11.9 Plt Count 215 MPV 10.6 Immature Gran % 0.4 Neutrophils % 76.6 Lymphocytes % 14.0 Monocytes % 8.0 Eosinophils % 0.5 Basophils % 0.5 Nucleated RBC % 0.0 Absolute Neutrophils 9.12 H Absolute Lymphocytes 1.67 Absolute Monocytes 0.95 H Absolute Eosinophils 0.06 Absolute Basophils 0.06 VBG Lactate 0.7 Sodium 137 Potassium 3.6 Chloride 102 Carbon Dioxide 28.8 Anion Gap 6.2 BUN 16 Creatinine 1.1 Est GFR (CKD-EPI 2020) 88.12 Glucose 112 H Calcium 9.0 Magnesium 1.9 Total Bilirubin 0.6 AST 13 L ALT 31 Alkaline Phosphatase 50 Total Protein 7.2 Albumin 3.6 Lipase 23 Urine Color Yellow Urine Clarity Clear Urine pH 7.0 Ur Specific [place] 1.020 Urine Protein 30 H Urine Ketones Negative Urine Blood Negative Urine Nitrite Negative Urine Bilirubin Negative Urine Urobilinogen 1.0 H Ur Leukocyte Esterase Negative Urine RBC 0-2 Urine WBC 3-5 Ur Epithelial Cells Few Urine Crystals Negative Urine Bacteria Negative Urine Mucus Heavy Ur Culture Indicated? No Urine Glucose Negative COVID-19 Source SARS-CoV-2 (PCR) PFSH All Active Problems Diverticulitis (Acute) Social History Smoking/Tobacco Use Status: Former Tobacco Use Smoking risk assessment performed?: Yes Alcohol Intake: never Drug use: Daily Substance use type: marijuana Housing: apartment Do you feel safe at home: Yes Do you feel safe in your relationship?: Yes Time Spent with Patient Time Spent with Patient: <45 minutes Time was spent: preparing to see the patient(eg.review tests), indepentently interpreting results, counseling the patient and care coordination
[2023-09-14] MEDS: PIPERACILLIN/TAZO 3.375 GM in Normal Saline 50 ML IVPB ×2 (02:35→07:42)
[2023-09-14 03:15] VITALS: BP 114/70; PULSE 74; RESP 18; TEMP 36.3; O2SAT 99
[2023-09-14 06:54] LABS: HGB 12.4 g/dL (13.5-17.5); MCH 27.1 pg (27.0-33.0); MCHC 33.5 % (32.0-36.0); MCV 81 fL (80-95); Platelet Count 200 10^3/uL (130-400); RBC 4.58 10^6/uL (4.36-5.78); RDW 11.8 % (11.8-14.1); RDW-SD 34.5 fL; WBC 7.09 10^3/uL (4.4-10.8)
[2023-09-14 07:06] VITALS: BP 113/72; PULSE 75; RESP 18; TEMP 36.9; O2SAT 98
--- NOTE | 2023-09-14 07:25 | PGE_ITS ---
Date of Service Date of service: 09/14/23 Time of Service: 07:25 Assessment and Plan Assessment and plan (1) Diverticulitis: Status: Acute Assessment and plan: I will discharge him home today, and he continue with the Augmentin that he was previously prescribed. We will follow-up with the [facility], with an appointment that is already scheduled. Subjective Subjective Interval history since last seen: Yousif is felt better through the night, and was able to tolerate a postop diet last evening without any difficulty. He is having little bit of liquid bowel movement, but is becoming a little more formed. Pain is much better than when he previously presented. Exam GI Other: Abdomen is soft and nondistended. He has a little bit of tenderness in the crouch prapubic and left side. This is better than yesterday. Objective Last Vital Signs Temp 98.4 F 09/14/23 07:06 Pulse 75 09/14/23 07:06 Resp 18 09/14/23 07:06 BP 113/72 09/14/23 07:06 Pulse Ox 98 09/14/23 07:06 Laboratory Results - last 24 hr 09/13/23 09/14/23 07:05 06:20 WBC 10.59 7.09 RBC 4.57 4.58 Hgb 12.6 L 12.4 L Hct 37.1 L 37.0 L MCV 81 81 MCH 27.6 27.1 MCHC 34.0 33.5 RDW 12.0 11.8 Plt Count 195 200 MPV 11.2 H 11.0 Immature Gran % 0.4 Neutrophils % 78.1 Lymphocytes % 11.8 Monocytes % 8.6 Eosinophils % 0.7 Basophils % 0.4 Nucleated RBC % 0.0 Absolute Neutrophils 8.28 H Absolute Lymphocytes 1.25 Absolute Monocytes 0.91 H Absolute Eosinophils 0.07 Absolute Basophils 0.04 Sodium 138 Potassium 3.7 Chloride 105 Carbon Dioxide 25.3 Anion Gap 7.7 BUN 13 Creatinine 0.9 Est GFR (CKD-EPI 2020) 112.11 Glucose 100 Calcium 8.7 Total Bilirubin 0.7 AST 12 L ALT 29 Alkaline Phosphatase 46 Total Protein 6.5 Albumin 3.2 L Time Spent with Patient Time Spent with Patient: <25 minutes Time was spent: preparing to see the patient(eg.review tests), indepentently interpreting results and counseling the patient
[2023-09-14] MEDS: Enoxaparin 40 MG/0.4 ML SYR SC (07:42)
[2023-09-14] MEDS: Omeprazole 20 MG CAPCR PO (07:42)
== END 2023-09-14 09:21 | disposition home or self-care (01) ==
LOC: ER 09-13 00:59 → MS 09-13 01:50
PROVIDERS: Admitting Provider Surgery; Emergency Provider Registered Nurse Emergency; Visit Provider Surgery
DX: K57.32 Diverticulitis of large intestine without perforation or abscess without bleeding (principal); D72.829 Elevated white blood cell count, unspecified; Z87.891 Personal history of nicotine dependence
CPT/HCPCS: 36415; 80053; 83690; 85027; 87635; 96361; 96365; 96366; 96372; 96375; 99285; J1650; 74177; 81003; 81015; 83605; 83735; 85025; G0378; J1170; J1885; J2543; J3010; J3490

== ENCOUNTER 2024-04-18 06:09 | Emergency (ER) | payer OTHER, SELFPAY ==
[2024-04-18 06:12] VITALS: BP 141/84; PULSE 83; RESP 22; TEMP 35.9; O2SAT 98
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
[2024-04-18 06:49] LABS: Abs Immature Grans 0.04 10^3/uL (0.0-0.06); Absolute Basophil Count 0.06 10^3/uL (0.0-0.2); Absolute Lymphocyte Count 1.62 10^3/uL (1.2-3.4); Absolute Monocyte Count 0.65 10^3/uL (0.1-0.8); Absolute Neutrophil Count 7.65 10^3/uL (1.2-6.7); Basophils % 0.6 %; HCT 45.1 % (40.0-50.0); HGB 15.2 g/dL (13.5-17.5); Immature Grans % 0.4 %; MCH 27.8 pg (27.0-33.0); MCHC 33.7 % (32.0-36.0); MCV 82 fL (80-95); Monocytes % 6.4 %; Neutrophils % 75.6 %; Platelet Count 231 10^3/uL (130-400); RBC 5.47 10^6/uL (4.36-5.78); RDW 11.9 % (11.8-14.1); RDW-SD 36.3 fL; WBC 10.12 10^3/uL (4.4-10.8)
[2024-04-18] MEDS: Lactated Ringers 1,000 ML 1000 ML IV (06:57)
[2024-04-18] MEDS: AMPICILLIN/SULBACTAM 3 GM in Normal Saline 100 ML IVPB (06:57)
[2024-04-18 07:12] LABS: ALT 60 U/L (16-63); AST 22 U/L (15-37); Albumin 4.3 g/dL (3.4-5.0); Alkaline Phosphatase 58 U/L (46-116); BUN 20 mg/dL (7-18); Bilirubin, Total 0.4 mg/dL (0.2-1.0); CREATININE 0.9 mg/dL (0.70-1.30); Chloride 103 mmol/L (98-107); Estimated GFR 111.42 (mL/min/1.73m2); Glucose 133 mg/dL (74-106); Lipase 44 U/L (16-77); Sodium 141 mmol/L (136-145); Total Protein 7.9 g/dL (6.4-8.2)
[2024-04-18 07:53] VITALS: BP 142/87; PULSE 89; RESP 16; O2SAT 96
== END 2024-04-18 07:54 | disposition home or self-care (01) ==
PROVIDERS: Emergency Provider Emergency Medicine
DX: K57.32 Diverticulitis of large intestine without perforation or abscess without bleeding (principal); K21.9 Gastro-esophageal reflux disease without esophagitis; Z87.891 Personal history of nicotine dependence
CPT/HCPCS: 80053; 83690; 96365; 99284; 85025; 99283; J0295

== ENCOUNTER 2025-01-14 08:35 | Emergency (ER) | payer OTHER, SELFPAY ==
[2025-01-14 08:44] VITALS: BP 143/73; PULSE 66; RESP 15; TEMP 37; O2SAT 97
--- NOTE | 2025-01-14 09:04 | ED.GENADUL_ITS ---
Discharge Plan Disposition Patient Disposition: Home Discharge Details Clinical Impression: Lower back pain Primary Care Provider: None,None ED Provider: Carolina Moreno Home Meds and New Rx's Prescriptions: New dexamethasone 6 mg tablet 6 mg PO DAILY Qty: 3 0RF No Action omeprazole magnesium [Prilosec OTC] 20 MG tablet,delayed release (DR/EC) 1 tab PO DAILY acetaminophen [Tylenol Extra Strength] 500 MG tablet 500 mg PO Q6H PRN (Reason: pain) Qty: 0 0RF Discharge Instructions Instructions: Low Back Pain ED Additional Instructions: Please follow-up with your primary care provider if your back pain is not feeling significantly better by the end of the week, a physical therapy referral may be helpful. I have prescribed for you a steroid to help with your back pain. You may also use ibuprofen 600 mg 3 times a day/every 8 hours and Tylenol 1000 mg 3 times a day/every 8 hours for pain control. Continue taking your omeprazole, as the steroid plus NSAID may be irritating to the stomach and increase your risk of GI bleed. I encourage you to continue doing your stretches. Gentle massage, lidocaine patches, and heat/ice (not to be applied over lidocaine patches) are also recommended. Return to emergency care if you develop fevers associated back pain, change in bowel/bladder function, pain down both legs, numbness in your groin area, or if you are very worried and need to be rechecked again immediately HPI General Date/Time Provider Initiated Documentation: 01/14/25 08:51 . HPI Narrative: Yousif is a 39year old male who presents to the emergency department today for evaluation of lower back pain. He reports that he threw his back out last night when he sneezed. No associated trauma. He does have a history of a herniated disc in his lower back, says this is consistent with previous episodes but is worse because it is not responding to his usual treatment. He does have sciatica going down the right leg. No saddle anesthesia, leg weakness, change in bowel/bladder function, associated fevers. Denies history of cardiac disease, lung disease, kidney dysfunction, alcohol use, or bipolar/manias.. Past medical history is significant for [] Physical exam reassuring. No midline spinal tenderness to C-spine/T-spine/L-spine. Mild paraspinal tenderness with palpation. No rashes, lesions, or abrasions noted. 5 out of 5 muscle strength to lower extremities. Achilles reflexes intact bilaterally. Sensation grossly intact. History and presentation consistent with lumbar radiculopathy due to herniated disc. No red flags concerning for fracture requiring diagnostic imaging on an emergent basis. While in the emergency department, Yousif received lidocaine patch, Toradol injection, and dexamethasone. Will treat with a short course of dexamethasone, NSAIDs, lidocaine patches, heat/ice, stretches. Patient is currently on omeprazole, continue use for GI prophylaxis. Recommend follow-up with PCP for PT referral as needed. Reviewed discharge instructions with patient, including symptomatic management and red flags indicating need for return to emergency care Related Data Home Medications ?Medication ?Instructions ?Recorded ?Confirmed omeprazole magnesium 20 mg 1 tab PO DAILY 03/17/18 01/14/25 tablet,delayed release (Prilosec OTC) acetaminophen 500 mg tablet 500 mg PO Q6H PRN pain #0 tabs 04/18/24 01/14/25 (Tylenol Extra Strength) dexamethasone 6 mg tablet 6 mg PO DAILY #3 tabs 01/14/25 Previous Rx's ?Medication ?Instructions ?Recorded acetaminophen 500 mg tablet 500 mg PO Q6H PRN pain #0 tabs 04/18/24 (Tylenol Extra Strength) dexamethasone 6 mg tablet 6 mg PO DAILY #3 tabs 01/14/25 Allergies Allergy/AdvReac Type Severity Reaction Status Date / Time No Known Allergies Allergy Unverified 01/14/25 08:47 General Stated Complaint: Nk/Back Pain ARTHUR: 3 Review of Systems Narrative: see HPI Exam Const General: cooperative, healthy appearing, comfortable, no acute distress, well developed and well groomed Nutritional Appearance: average body habitus Orientation: alert and oriented x3 Resp Effort & Inspection: normal respiratory effort and able to speak in complete sentences Back/Spine/Pelvis Cervical Spine: normal cervical lordosis and cervical ROM normal Thoracic/Lumbar Spine: thoracic and lumbar spine normal to inspection and paraspinal tenderness Skin General skin exam: no rashes or lesions noted Trauma: no lacerations or abrasions Neuro Gait: normal gait Motor: muscle tone normal throughout and strength 5/5 throughout Sensory Exam: no sensory deficits noted Course Vital Signs Vital signs: Vital Signs Temperature 37.0 C 01/14/25 08:44 Pulse 66 01/14/25 08:44 Respiratory Rate 15 01/14/25 08:44 Blood Pressure 143/73 H 01/14/25 08:44 Pulse Oximetry 97 01/14/25 08:44 Temperature 37.0 C 01/14/25 08:44 Pulse 66 01/14/25 08:44 Respiratory Rate 15 01/14/25 08:44 Blood Pressure 143/73 H 01/14/25 08:44 Blood Pressure Position Sitting 01/14/25 08:44 Pulse Oximetry 97 01/14/25 08:44 Oxygen Delivery Method Room Air 01/14/25 08:44 Oxygen Flow Rate 0 01/14/25 08:44 Pain Level 8 01/14/25 08:46 Medical Decision Making Quality:SDOH Health Related Social Needs: No Data to Display PFSH All Active Problems (Updated 01/14/25 @ 09:07 by Carolina Catalan) Lower back pain (Acute) Medical History GERD (gastroesophageal reflux disease) Diverticulitis Surgical History History of bowel resection Social History (Updated 04/18/24 @ 07:03 by Pedrito Gonzales MD) Smoking/Tobacco Use Status: Former Tobacco Use Smoking risk assessment performed?: Yes Alcohol Intake: never Drug use: Daily Substance use type: marijuana Details: [facility] Housing: apartment Do you feel safe at home: Yes Do you feel safe in your relationship?: Yes Additional Social history: combat
[2025-01-14] MEDS: Lidocaine 5% Patch 1 PATCH TP (09:40)
[2025-01-14] MEDS: Dexamethasone 4 MG TAB 6 MG PO (09:41)
[2025-01-14] MEDS: Ketorolac 15 MG/ML VIAL IM (09:41)
[2025-01-14 09:47] VITALS: BP 146/75; PULSE 63; RESP 12; O2SAT 98
== END 2025-01-14 09:50 | disposition home or self-care (01) ==
LOC: ER 09:24
PROVIDERS: Emergency Provider Nurse Practitioner Family
DX: M54.50 Low back pain, unspecified (principal); Z87.891 Personal history of nicotine dependence
CPT/HCPCS: 96372; 99284; 99283; J1885; J8540

== ENCOUNTER 2025-04-17 16:14 | Emergency (ER) | payer SELFPAY ==
[2025-04-17 16:18] VITALS: BP 151/83; PULSE 65; TEMP 36.7; O2SAT 98
--- NOTE | 2025-04-17 17:35 | ED.GENADUL_ITS ---
Discharge Plan Disposition Patient Disposition: Home Condition: Stable Discharge Details Clinical Impression: Left inguinal pain Primary Care Provider: None,None ED Provider: Oswaldo Wetzel Home Meds and New Rx's Prescriptions: Continued omeprazole magnesium [Prilosec OTC] 20 MG tablet,delayed release (DR/EC) 1 tab PO DAILY acetaminophen [Tylenol Extra Strength] 500 MG tablet 500 mg PO Q6H PRN (Reason: pain) Qty: 0 0RF Discharge Instructions Additional Instructions: You likely have a hernia that self reduces. I placed on our follow-up list to see general surgery and you should receive a call for an appointment for this. If you develop severe constant pain in vomiting return to the emergency department for reevaluation. HPI General Mode of arrival: ambulatory . Date/Time Provider Initiated Documentation: 04/17/25 16:32 . Limitations to Documentation: no limitations . Information obtained by: patient . History of Present Illness 39 year old M presents to the emergency department with the chief complaint of left inguinal area pain, described as mild, Quality is described as aching, Patient started experiencing this week(s) (14) and it has been intermittent. No relieving factors improve symptom(s), No exacerbating factors reported . Patient notes no other symptoms.. Patient did receive the following treatments prior to arrival, none Related Data Home Medications ?Medication ?Instructions ?Recorded ?Confirmed omeprazole magnesium 20 mg 1 tab PO DAILY 03/17/18 04/17/25 tablet,delayed release (Prilosec OTC) acetaminophen 500 mg tablet 500 mg PO Q6H PRN pain #0 tabs 04/18/24 04/17/25 (Tylenol Extra Strength) Previous Rx's ?Medication ?Instructions ?Recorded acetaminophen 500 mg tablet 500 mg PO Q6H PRN pain #0 tabs 04/18/24 (Tylenol Extra Strength) Allergies Allergy/AdvReac Type Severity Reaction Status Date / Time No Known Allergies Allergy Unverified 04/17/25 16:20 General Stated Complaint: Male Reproductive Problem ARTHUR: 3 Review of Systems All systems reviewed & are unremarkable except as noted in HPI and below Constitutional Constitutional: Denies chills, Denies fever(s) and Denies weakness Cardiovascular Cardiovascular: Denies chest pain and Denies dyspnea Respiratory Respiratory: Denies cough and Denies dyspnea Gastrointestinal Gastrointestinal: Denies vomiting Genitourinary Genitourinary: Denies dysuria Neurologic Neurologic: Denies weakness Psychiatric Psychiatric: Denies depression Exam Const General: no acute distress Orientation: alert HENMT Head: normal to inspection Ears: external ears normal General nose exam: external nose normal Mouth: moist mucous membranes Eyes General: appearance normal, both eyes and all related structures Neck Neck: normal visual inspection Resp Effort & Inspection: normal respiratory effort and able to speak in complete sentences Cardio Rate: regular rate GI Palpation: soft and nontender Penis: normal penis Meatus: meatus normal Scrotum: scrotum normal Testes: normal Skin General skin exam: no rashes or lesions noted Neuro General: patient alert and patient oriented x3 Extrem General: normal to inspection Psych Mental Status: mental status grossly normal Course Vital Signs Vital signs: Vital Signs Temperature 36.7 C 04/17/25 16:18 Pulse 65 04/17/25 16:18 Blood Pressure 151/83 H 04/17/25 16:18 Pulse Oximetry 98 04/17/25 16:18 Temperature 36.7 C 04/17/25 16:18 Temperature Source Temporal Artery Scan 04/17/25 16:18 Pulse 65 04/17/25 16:18 Blood Pressure 151/83 H 04/17/25 16:18 Blood Pressure Position Sitting 04/17/25 16:18 Pulse Oximetry 98 04/17/25 16:18 Oxygen Delivery Method Room Air 04/17/25 16:18 Oxygen Flow Rate 0 04/17/25 16:18 Medical Decision Making 39-year-old male comes in with a week of intermittent left inguinal pain. He says that he is never had this before came here for evaluation. He is currently not having any pain. He says that his left left inguinal pain is sometimes radiates to the left testicle. He denies any urinary symptoms. Denies any fevers or vomiting. Is well-appearing on exam. He has a soft nontender abdomen. He points to the left mid inguinal area where he has the pain when he does have it there is no tenderness currently there is no palpable mass. Testicles are normal without any tenderness I suspect he likely has a inguinal hernia that self reduces. Given he has no tenderness now I do not feel any labs or imaging is indicated. I will place him on a follow-up list to follow-up with return precautions given Quality:SDOH Health Related Social Needs: No Data to Display [facility] All Active Problems (Updated 04/17/25 @ 17:38 by Oswaldo Wetzel MD) Left inguinal pain (Acute) Medical History GERD (gastroesophageal reflux disease) Diverticulitis Surgical History History of bowel resection Social History (Updated 04/18/24 @ 07:03 by Pedrito Gonzales MD) Smoking/Tobacco Use Status: Former Tobacco Use Smoking risk assessment performed?: Yes Alcohol Intake: never Drug use: Daily Substance use type: marijuana Details: [facility] Housing: apartment Do you feel safe at home: Yes Do you feel safe in your relationship?: Yes Additional Social history: combat
== END 2025-04-17 18:16 | disposition home or self-care (01) ==
LOC: ER 18:15
PROVIDERS: Emergency Provider Emergency Medicine
DX: R10.32 Left lower quadrant pain (principal); Z87.891 Personal history of nicotine dependence
CPT/HCPCS: 99283